=== PATIENT | female | born 1965 | race Caucasian/White ===

== ENCOUNTER 2016-08-26 13:34 | Emergency (ER) | payer MEDICAID, OTHER ==
[~2016-08-26] VITALS: Ht 167.6 cm; Wt 90.0 kg
[2016-08-26] MEDS ORDERED: METF500T4 PO (13:43)
[2016-08-26] MEDS: ONDANSETRON HCL 4MG/2ML VIAL IV STA (14:40)
[2016-08-26] MEDS: MORPHINE SULFATE 4 MG/ML CPJ (NOT FOR IM USE) IV STA (14:40)
[2016-08-26 14:59] LABS: CLARITY URINE CLEAR (CLEAR); COLOR URINE YELLOW (YELLOW); GLUCOSE URINE 3+ (NEGATIVE); KETONES URINE NEGATIVE (NEGATIVE); LEUKOCYTE ESTERASE URINE NEGATIVE (NEGATIVE); NITRITE URINE NEGATIVE (NEGATIVE); OCCULT BLOOD URINE NEGATIVE (NEGATIVE); PROTEIN URINE NEGATIVE (NEGATIVE); SPECIFIC GRAVITY URINE 1.039 (1.005-1.030); UROBILINOGEN URINE 0.2 E.U./dL (0.2-1.0)
[2016-08-26 15:10] LABS: D-DIMER 0.31 mg/L FEU (<0.50); INR 0.9; PARTIAL THROMBOPLASTIN TIME 25.2 sec (24.0-34.0); PROTHROMBIN TIME 9.4 sec
[2016-08-26 15:11] LABS: *AMPHETAMINES SCREEN URINE NEGATIVE (NEGATIVE); *BARBITURATES SCREEN URINE NEGATIVE (NEGATIVE); *BENZODIAZEPINES SCREEN URINE NEGATIVE (NEGATIVE); *COCAINE SCREEN URINE NEGATIVE (NEGATIVE); CANNABINOID URINE SCREEN NEGATIVE (NEGATIVE); ECSTASY MDMA SCREEN URINE NEGATIVE (NEGATIVE); METHADONE URINE SCREEN NEGATIVE (NEGATIVE); OPIATES URINE SCREEN NEGATIVE (NEGATIVE); PHENCYCLIDINE URINE SCREEN NEGATIVE (NEGATIVE)
[2016-08-26 15:17] LABS: ALANINE AMINOTRANSFERASE 23 IU/L (13-61); ALBUMIN 3.5 g/dL (3.4-5.0); ANION GAP 11; CALCIUM 9.2 mg/dL (8.5-10.1); CARBON DIOXIDE 29 mEq/L (21-32); CHLORIDE 100 mEq/L (98-107); EOSINOPHILS % 3.1 % (0.0-5.0); HEMATOCRIT. 40.9 % (36.0-48.0); HEMOGLOBIN. 13.2 g/dL (12.0-16.0); INDEX HEMOLYSI 1 (1-3); INDEX ICTERIC 1 (1-4); INDEX LIPEMIC 1 (1-3); LIPASE 260 IU/L (73-393); LYMPHOCYTES % 32.1 % (20.0-50.0); MEAN CORPUSCULAR HEMOGLOBIN 26.3 pg (28.0-32.0); MEAN CORPUSCULAR HGB CONC 32.3 g/dL (31.0-37.0); MEAN CORPUSCULAR VOLUME 81.4 fL (81.0-99.0); MEAN PLATELET VOLUME 9.6 fl (7.4-10.4); MONOCYTES % 4.6 % (2.0-8.0); NEUTROPHILS % 59.2 % (40.0-76.0); PLATELET 272 x1000/uL (130-400); RED BLOOD CELL COUNT 5.02 mill/uL (4.2-5.4); RED CELL DISTRIBUTION WIDTH 13.3 % (11.6-14.6); UREA NITROGEN BLOOD 12 mg/dL (7-21); WHITE BLOOD COUNT 6.8 x1000/uL (4.5-11.0); eGFR > 60 mL/min (>60)
[2016-08-26 15:18] LABS: HCG SCREEN NEGATIVE
[2016-08-26 15:19] LABS: NT PRO B-TYPE NATRIURETIC PEP 8 pg/mL (5-125); TROPONIN I < 0.02 ng/mL (0.00-0.04)
[2016-08-26 15:20] LABS: DIFFERENTIAL COMMENT 1; WBC URINE 0-2 /hpf (0-2)
[2016-08-26 15:21] LABS: BACTERIA URINE 1+; RBC URINE 0-2 /hpf (0-2); SQUAMOUS EPITHELIAL CELL URINE FEW /lpf (RARE/1+)
[2016-08-26] MEDS: KETOROLAC 30MG/ML VIAL IV STA (15:58)
[2016-08-26] MEDS: INSULIN REGULAR (HUMULIN R) 300UNITS/3ML SUBCUT ONE (16:05)
[2016-08-26] MEDS: INSULIN REGULAR (HUMULIN R) 300UNITS/3ML IV ONE (16:05)
[2016-08-26 19:15] VITALS: BP 118/78
== END 2016-08-26 19:15 | disposition home or self-care (01) ==
LOC: ER 13:51
DX: R07.89 Other chest pain (principal); E11.65 Type 2 diabetes mellitus with hyperglycemia; I10 Essential (primary) hypertension; Z98.890 Other specified postprocedural states
CPT/HCPCS: 36415; 71010; 80053; 80305; 81001; 82962; 83690; 83880; 84443; 84484; 84703; 85025; 85379; 85610; 85730; 93005; 96372; 96374; 96375; 99285; J1815; J1885; J2270; J2405; J7030

== ENCOUNTER 2018-11-13 14:29 | Emergency (ER) | payer MEDICAID, OTHER ==
[~2018-11-13] VITALS: Ht 167.6 cm; Wt 88.0 kg
[~2018-11-13 14:29] MED LIST: METF-414 PO
[2018-11-13] MEDS ORDERED: KETOROLAC 30MG/ML VIAL IM ONE (16:00)
[2018-11-13 17:09] LABS: CLARITY URINE CLOUDY (CLEAR); COLOR URINE YELLOW (YELLOW); KETONES URINE TRACE (NEGATIVE); LEUKOCYTE ESTERASE URINE 1+ (NEGATIVE); NITRITE URINE NEGATIVE (NEGATIVE); OCCULT BLOOD URINE NEGATIVE (NEGATIVE); PROTEIN URINE NEGATIVE (NEGATIVE); SPECIFIC GRAVITY URINE 1.045 (1.005-1.030); UROBILINOGEN URINE 0.2 E.U./dL (0.2-1.0)
[2018-11-13 18:00] VITALS: BP 142/69
== END 2018-11-13 18:00 | disposition home or self-care (01) ==
LOC: ER 14:29
DX: M54.5 Low back pain (principal); N39.0 Urinary tract infection, site not specified; E11.9 Type 2 diabetes mellitus without complications; I10 Essential (primary) hypertension; Z79.84 Long term (current) use of oral hypoglycemic drugs
CPT/HCPCS: 81003; 96372; 99283; J1885

== ENCOUNTER 2020-08-12 13:08 | Emergency (ER) | payer OTHER ==
[~2020-08-12] VITALS: Ht 167.6 cm; Wt 82.0 kg
[2020-08-12] MEDS ORDERED: IBUPROFEN 600MG TABLET PO STA (14:08)
[2020-08-12] MEDS ORDERED: TETRACAINE 0.5% OPHTH DROPS 4ML RIGHTEYE ONE (14:15)
[2020-08-12] MEDS ORDERED: FLUORESCEIN SODIUM 1MG/STRIP RIGHTEYE ONE (14:15)
[2020-08-12] MEDS ORDERED: BALANCED SALT IRRIG SOLN 15ML IR ONE (14:15)
[2020-08-12] MEDS ORDERED: POLY15DR31 EACHEYE (15:54)
[2020-08-12] MEDS ORDERED: AMOX-424 MT (15:54)
[2020-08-12] MEDS ORDERED: IBUP-2029 PO (15:54)
[2020-08-12] MEDS ORDERED: BO1 TP (15:56)
[2020-08-12 16:04] VITALS: BP 123/88
== END 2020-08-12 16:06 | disposition home or self-care (01) ==
LOC: ER 13:08
DX: S61.451A Open bite of right hand, initial encounter (principal); H11.31 Conjunctival hemorrhage, right eye; E11.9 Type 2 diabetes mellitus without complications; Z98.890 Other specified postprocedural states; W55.01XA Bitten by cat, initial encounter; Y93.89 Activity, other specified; Y92.89 Other specified places as the place of occurrence of the external cause; Y99.8 Other external cause status
CPT/HCPCS: 73130; 99283; Z7610